=== PATIENT | female | born 1965 | race Caucasian/White ===

== ENCOUNTER → 2018-03-26 09:05 | Outpatient (CLI) | payer BC, SELFPAY ==
[2018-03-26 09:48] LABS: Erythrocyte Sedimentation Rate 12 mm/hr (0-30)
[2018-03-26 09:49] LABS: Absolute Lymphocyte Count 1.07 X10^3/ul (0.83-4.51); Absolute Neutrophil Count 6.3 X10^3/uL (2.0-7.7); Basophil# 0.04 X10^3/uL; Basophil% 0.5 % (0-1); Eosinophil# 0.47 X10^3/uL; Eosinophils% 5.5 % (0-5); Lymphocyte # 1.07 X10^3/ul (4.0); Lymphocyte % 12.5 % (19-41); Mean Corp Hgb Conc 32.4 g/gl (32-36); Mean Corpuscular Hgb 26.7 pg (27.0-32.0); Mean Corpuscular Volume 82.4 fL (81-99); Mean Platelet Vol. 8.9 fl (6.2-12.0); Monocyte# 0.72 X10^3/uL; Monocyte% 8.4 % (0-10); Neutrophil # 6.26 X10^3/uL (2.7-7.7); Platelet Count 352 K/mm3 (150-450); RBC Distribution Width CV 14.5 % (11.6-14.6); RBC Distribution Width SD 42.4 fl (35.1-43.9); Red Blood Count 4.49 M/mm3 (4.2-5.4); White Blood Count 8.6 K/mm3 (4.4-11.0)
[2018-03-26 09:50] LABS: POSITIVE COUNT NO; POSITIVE DIFFERENTIAL NO; POSITIVE MORPHOLOGY NO
[2018-03-26 10:18] LABS: T4 Free Direct 1.16 ng/dL (0.76-1.46); Thyroid Stim Hormone (TSH) 1.03 uIU/mL (0.358-3.74)
== END ==
PROVIDERS: Family Provider Internal Medicine; PCP Internal Medicine; Visit Provider Otolaryngology Otolaryngology/Facial Plastic Surgery
DX: J32.9 Chronic sinusitis, unspecified (principal); R63.5 Abnormal weight gain
CPT/HCPCS: 36415; 84439; 84443; 85025; 85652; 87070; 87205

== ENCOUNTER → 2018-08-16 15:52 | Outpatient (CLI) | payer BC, SELFPAY | PROVIDERS: Family Provider Internal Medicine; PCP Internal Medicine; Referring Provider Otolaryngology Otolaryngology/Facial Plastic Surgery; Visit Provider Otolaryngology Otolaryngology/Facial Plastic Surgery | DX: J32.9 Chronic sinusitis, unspecified (principal) | CPT/HCPCS: 87070; 87205 ==

== ENCOUNTER → 2019-02-01 15:18 | Outpatient (CLI) | payer BC, SELFPAY ==
[2019-02-01 11:21] VITALS: BMI 29.8
[2019-02-06 14:27] LABS: HPV APTIMA, High Risk Negative (Negative)
== END ==
PROVIDERS: Family Provider Internal Medicine; PCP Internal Medicine; Referring Provider Obstetrics & Gynecology; Visit Provider Obstetrics & Gynecology
DX: Z12.4 Encounter for screening for malignant neoplasm of cervix (principal)
CPT/HCPCS: 87624; 88175; G0145

== ENCOUNTER → 2019-03-10 07:58 | Outpatient (CLI) | payer BC, SELFPAY ==
[2019-02-01 11:21] VITALS: BMI 29.8
--- NOTE | 2019-03-10 08:02 | BI_ITS ---
MAMMOGRAPHY - BILATERAL SCREENING REASON FOR EXAM: Female, 53 years old. Routine annual screening examination. PERTINENT HISTORY: Non-contributory. TECHNIQUE: Digital bilateral breast arlin (3D mammographic acquisition) in the CC and MLO projections. 2-D mediolateral oblique (MLO) and craniocaudad (CC) views of both breasts were obtained. CAD: Full Field Digital Mammography with Computer Added Detection was performed. COMPARISON: Comparison is made with prior study dated October 19, 2012. FINDINGS: Breast Composition: The breasts are heterogeneously dense, which may obscure small masses. There are no dominant masses or suspicious calcifications. Stable 5.4 mm well-defined nodule in the deep upper lateral portion of the right breast. A central notch is seen. This is in keeping with a small lymph node. No other significant abnormalities are identified. There has been no significant change since the prior study. BI/SCREEN MAMM (CAD) W/ARLIN BILAT IMPRESSION: Stable bilateral screening mammogram. Yearly follow-up mammogram recommended. (A) ASSESSMENT CATEGORY: BIRADS Category 2: Benign. A letter regarding these results will be sent to the patient by the facility within 30 days. Approximately 10% of breast cancers are not detected by mammography. A normal mammogram should not delay biopsy of a clinically suspicious abnormality. [id number] Electronically Signed: Anurag Marcelo, at 9:21 EDT , Service support ,
[2019-03-10 09:06] LABS: Cholesterol 154 mg/dL (200); Glucose 86 mg/dL (74-106); High Density Lipoprotein 73 mg/dL; Triglycerides 72 mg/dL; Very Low Density Lipoprotein 14 mg/dL (5-40)
[2019-03-10 09:16] LABS: Vitamin D,25 Hydroxy 35.3 ng/mL (29.95-100.01)
== END ==
LOC: OPBI 08:00 → PAVLAB 08:24
PROVIDERS: Family Provider Internal Medicine; PCP Internal Medicine; Referring Provider Obstetrics & Gynecology; Visit Provider Obstetrics & Gynecology
DX: Z12.31 Encounter for screening mammogram for malignant neoplasm of breast (principal); Z01.419 Encounter for gynecological examination (general) (routine) without abnormal findings; E56.9 Vitamin deficiency, unspecified
CPT/HCPCS: 36415; 77063; 77067; 80061; 82306; 82947

== ENCOUNTER → 2019-08-28 15:33 | Outpatient (CLI) | payer BC, SELFPAY ==
[2019-02-01 11:21] VITALS: BMI 29.8
--- NOTE | 2019-08-28 15:35 | CT_ITS ---
STUDY: CT MAXILLOFACIAL SINUSES REASON FOR EXAM: Female, 53 years old. Sinusitis. RADIATION DOSAGE (If Supplied By Facility): CTDIvol = ( 33.06 ) mGy, DLP = ( 800.79 ) mGycm TECHNIQUE: The patient was scanned in a multi detector CT scanner. High resolution axial imaging was performed without the administration of intravenous contrast material. Sagittal and coronal images were reconstructed. Individualized dose optimization techniques were used for this CT. COMPARISON: None. FINDINGS: FRONTAL SINUSES: Normal aeration, without mucosal inflammatory disease. ETHMOIDAL SINUSES: Normal aeration, without mucosal inflammatory disease. MAXILLARY SINUSES: Normal aeration. Minimal mucosal thickening in the floors of both maxillary sinuses, left worse than right, but not reaching 5 mm thickness. SPHENOIDAL SINUSES: Normal aeration, without mucosal inflammatory disease. There is patency of the bilateral maxillary infundibuli with normal uncinate processes, ethmoid bullae, and hiatus semilunaris. Normal bilateral middle turbinates. Normal bilateral inferior turbinates. Normal midline nasal septum. There is patency of the bilateral nasal airways. The visualized osseous structures are normal. The visualized bilateral orbital contents are normal. CT/Sinus/Facial Bone IMPRESSION: No evidence for acute sinusitis. Minimal mucosal thickening in the floors of both maxillary sinuses. Electronically Signed: Davis Rodriguez MD at 19:15 EDT , Service support ,
== END ==
PROVIDERS: Family Provider Internal Medicine; PCP Internal Medicine; Referring Provider Otolaryngology Otolaryngology/Facial Plastic Surgery; Visit Provider Otolaryngology Otolaryngology/Facial Plastic Surgery
DX: J32.9 Chronic sinusitis, unspecified (principal)
CPT/HCPCS: 70486

== ENCOUNTER → 2019-10-21 08:43 | Outpatient (CLI) | payer BC, SELFPAY ==
[2019-02-01 11:21] VITALS: BMI 29.8
[2019-10-24 06:07] LABS: Clam <0.10 kU/L (Class 0); Codfish <0.10 kU/L (Class 0); Corn <0.10 kU/L (Class 0); Egg, White <0.10 kU/L (Class 0); Gluten <0.10 kU/L (Class 0); Milk (Cow) <0.10 kU/L (Class 0); Oat <0.10 kU/L (Class 0); Peanut <0.10 kU/L (Class 0); SCALLOP <0.10 kU/L (Class 0); SESAME SEED <0.10 kU/L (Class 0); Shrimp <0.10 kU/L (Class 0); Soybean <0.10 kU/L (Class 0); Walnut, (Food) <0.10 kU/L (Class 0); Wheat <0.10 kU/L (Class 0)
[2019-10-24 14:45] LABS: Wheat <0.10 kU/L (Class 0); Yeast <0.10 kU/L (Class 0)
== END ==
PROVIDERS: Family Provider Internal Medicine; PCP Internal Medicine; Referring Provider Otolaryngology Otolaryngology/Facial Plastic Surgery; Visit Provider Otolaryngology Otolaryngology/Facial Plastic Surgery
DX: T78.40XA Allergy, unspecified, initial encounter (principal)
CPT/HCPCS: 36415; 86003

== ENCOUNTER → 2020-02-07 09:07 | Outpatient (CLI) | payer BC, SELFPAY ==
[2019-02-01 11:21] VITALS: BMI 29.8
--- NOTE | 2020-02-07 09:27 | CT_ITS ---
STUDY: CT ABDOMEN AND PELVIS WITH CONTRAST REASON FOR EXAM: Female, 54 years old. RLQ PAIN X 1 WEEK RADIATION DOSAGE (If Supplied By Facility): CTDIvol = ( 16.61 ) mGy, DLP = ( 833.71 ) mGycm TECHNIQUE: Transaxial images were obtained from the dome of the diaphragm to the symphysis pubis with oral contrast. Oral and amp; IV Gastrografin and amp; 100mL Isovue-300 was administered. Sagittal and coronal images were reconstructed. Individualized dose optimization techniques were used for this CT. COMPARISON: None. FINDINGS: The visualized lung bases are unremarkable. The visualized portions of the heart are within normal limits. There is decreased attenuation of the liver consistent with steatosis. Normal gallbladder and extrahepatic biliary system. Normal spleen. Normal pancreas. Normal bilateral adrenal glands. Normal right kidney. Normal left kidney. There is a small hiatal hernia. Normal small intestine. Normal colon. The appendix is visualized and appears normal. Small lymph nodes are seen in the mesenteric fat in the right lower quadrant adjacent to the terminal ileum and appendix suggestive of mesenteric adenitis. Normal abdominal aorta. Normal inferior vena cava. Normal retroperitoneum. Normal urinary bladder. Normal abdominal wall. Normal osseous structures. CT/Abdomen/Pelvis WITH Contrast IMPRESSION: Findings suggestive of mesenteric adenitis. Electronically Signed: Anurag Marcelo, at 11:57 EDT , Service support ,
[2020-02-07 09:48] LABS: Absolute Lymphocyte Count 1.79 X10^3/uL (0.83-4.51); Absolute Neutrophil Count 3.3 X10^3/uL (2.0-7.7); Basophil# 0.06 X10^3/uL; Eosinophil# 0.21 X10^3/uL; Eosinophils% 3.5 % (0-5); Hematocrit 36.4 % (37-47); Hemoglobin 11.1 g/dL (12.0-15.0); Lymphocyte # 1.79 X10^3/ul (4.0); Lymphocyte % 29.9 % (19-41); Mean Corp Hgb Conc 30.5 g/dL (32-36); Mean Corpuscular Hgb 24.9 pg (27.0-32.0); Mean Corpuscular Volume 81.6 fL (81-99); Mean Platelet Vol. 8.7 fl (6.2-12.0); Monocyte# 0.58 X10^3/uL; Monocyte% 9.7 % (0-10); NRBC Flagged by Analyzer 0 % (0-5); Neutrophil # 3.33 X10^3/uL (2.7-7.7); Neutrophil % 55.7 % (47-70); Platelet Count 387 K/mm3 (150-450); RBC Distribution Width CV 15.1 % (11.6-14.6); RBC Distribution Width SD 44.3 fl (35.1-43.9); Red Blood Count 4.46 M/mm3 (4.2-5.4)
[2020-02-07 09:54] LABS: Albumin, Serum 3.6 g/dL (3.2-5.0); BUN 12 mg/dL (7-18); BUN/Creat Ratio 15.6 RATIO (10-20); Calcium,Total 9.1 mg/dL (8.5-10.1); Chloride 110 mmol/L (98-107); Creatinine, Serum 0.77 mg/dL (0.55-1.02); EST Glomerular Filtration Rate 84 mL/min (>60); Est Glom Filt Rate - Afr Amer 101 mL/min (>60); Glucose 90 mg/dL (74-106); Phosphorus 3.9 mg/dL (2.5-4.9); Potassium 4.1 mmol/L (3.5-5.1); Sodium Level 141 mmol/L (136-145)
== END ==
PROVIDERS: PCP Internal Medicine; Referring Provider Nurse Practitioner; Visit Provider Nurse Practitioner
DX: R10.31 Right lower quadrant pain (principal)
CPT/HCPCS: 36415; 74177; 80069; 85025; 87086; 87088; Q9967

== ENCOUNTER → 2020-02-20 08:30 | Outpatient (CLI) | payer BC, SELFPAY ==
[2019-02-01 11:21] VITALS: BMI 29.8
--- NOTE | 2020-02-20 08:32 | US_ITS ---
STUDY: ULTRASOUND OF THE FEMALE PELVIS - COMPLETE REASON FOR EXAM: Female, 54 years old. F/U CT DONE 02/07/20 -- RT MESENTERIC LILIAN TITIS -- PAIN WITH INTERCOURSE LMP: February 10, 2020. TECHNIQUE: Transabdominal and Transvaginal TECHNICAL QUALITY: Adequate. COMPARISON: Comparison is made with prior CT scan dated February 07, 2020. FINDINGS: The uterus is anteverted and is in a midline position. The uterus measures 10.8 cm x 6.4 cm x 6.1 cm. There is a Nabothian cyst of the cervix. The endometrium measures 19 mm in thickness, and is hyperechoic. There is no demonstrated endometrial mass. 2 fibroids are seen. The largest measures 1.9 cm x 1.6 cm x 1.5 cm. I.U.D. - The patient does not have an I.U.D. The right ovary is visualized. The right ovary measures 2.2 cm x 2.5 cm x 1.7 cm. There is no right ovarian cyst or ovarian mass. There is no visualized right adnexal mass or complex lesion. There is normal arterial and normal venous vascularity. The left ovary is visualized. The left ovary measures 1.9 cm x 2.7 cm x 1.5 cm. There is no left ovarian cyst or ovarian mass. There is no visualized left adnexal mass or complex lesion. There is normal arterial and normal venous vascularity. There is no fluid in the cul-de-sac. 2 benign-appearing lymph nodes are seen in the right lower quadrant. The larger measuring 2.5 cm x 2.5 cm x 0.9 cm. US/Transvaginal Non- IMPRESSION: 2 small uterine fibroids. There are 2 benign-appearing lymph nodes in the right lower quadrant the larger measuring 2.5 cm x 2.5 cm by 0.9 cm. Electronically Signed: Anurag Marcelo, at 12:40 EDT , Service support ,
--- NOTE | 2020-02-20 08:32 | US_ITS ---
STUDY: ULTRASOUND OF THE FEMALE PELVIS - COMPLETE REASON FOR EXAM: Female, 54 years old. F/U CT DONE 02/07/20 -- RT MESENTERIC LILIAN TITIS -- PAIN WITH INTERCOURSE LMP: February 10, 2020. TECHNIQUE: Transabdominal and Transvaginal TECHNICAL QUALITY: Adequate. COMPARISON: Comparison is made with prior CT scan dated February 07, 2020. FINDINGS: The uterus is anteverted and is in a midline position. The uterus measures 10.8 cm x 6.4 cm x 6.1 cm. There is a Nabothian cyst of the cervix. The endometrium measures 19 mm in thickness, and is hyperechoic. There is no demonstrated endometrial mass. 2 fibroids are seen. The largest measures 1.9 cm x 1.6 cm x 1.5 cm. I.U.D. - The patient does not have an I.U.D. The right ovary is visualized. The right ovary measures 2.2 cm x 2.5 cm x 1.7 cm. There is no right ovarian cyst or ovarian mass. There is no visualized right adnexal mass or complex lesion. There is normal arterial and normal venous vascularity. The left ovary is visualized. The left ovary measures 1.9 cm x 2.7 cm x 1.5 cm. There is no left ovarian cyst or ovarian mass. There is no visualized left adnexal mass or complex lesion. There is normal arterial and normal venous vascularity. There is no fluid in the cul-de-sac. 2 benign-appearing lymph nodes are seen in the right lower quadrant. The larger measuring 2.5 cm x 2.5 cm x 0.9 cm. US/Pelvic (Non ) IMPRESSION: 2 small uterine fibroids. There are 2 benign-appearing lymph nodes in the right lower quadrant the larger measuring 2.5 cm x 2.5 cm by 0.9 cm. Electronically Signed: Anurag Marcelo, at 12:40 EDT , Service support ,
== END ==
PROVIDERS: PCP Internal Medicine; Referring Provider Nurse Practitioner; Visit Provider Nurse Practitioner
DX: I88.0 Nonspecific mesenteric lymphadenitis (principal)
CPT/HCPCS: 76830; 76856

== ENCOUNTER → 2020-02-22 11:35 | Outpatient (CLI) | payer BC, SELFPAY ==
[2020-02-22 11:19] VITALS: BMI 29.8
[2020-02-22 12:50] LABS: Potassium 3.8 mmol/L (3.5-5.1); Thyroid Stim Hormone (TSH) 1.43 uIU/mL (0.358-3.74)
[2020-02-24 03:06] LABS: DHEA Sulfate 31.4 ug/dL (41.2-243.7)
[2020-02-24 03:56] LABS: Testosterone Free 1.5 pg/mL (0.0-4.2)
== END ==
PROVIDERS: PCP Internal Medicine; Referring Provider Nurse Practitioner Women's Health; Visit Provider Nurse Practitioner Women's Health
DX: L68.0 Hirsutism (principal); E87.5 Hyperkalemia; R10.2 Pelvic and perineal pain
CPT/HCPCS: 82627; 84132; 84402; 84439; 84443; 87070; 87077; 87186; 87205; 82626

== ENCOUNTER → 2021-08-06 13:49 | Outpatient (CLI) | payer BC, SELFPAY ==
--- NOTE | 2021-08-06 13:53 | BI_ITS ---
MAMMOGRAPHY - BILATERAL SCREENING 3-D TOMOSYNTHESIS REASON FOR EXAM: Female, 55 years old. screening mammogram PERTINENT HISTORY: No significant family history. TECHNIQUE: 2-D mammograms and 3-D Tomosynthesis of the breast (s) were performed. CAD was performed. COMPARISON: 03/10/2019 FINDINGS: The breast composition is composed of scattered fibroglandular density. Scattered benign calcifications are seen. No dense spiculated masses or suspicious microcalcifications are identified. No architectural distortion is identified. There is no skin thickening or retraction. There has been no significant change since the prior study. BI/SCRN MAMM (CAD)W/ARLIN BILAT IMPRESSION: No mammographic signs of malignancy. Routine yearly mammograms recommended. ASSESSMENT CATEGORY: BIRADS Category 1: Negative. A letter regarding these results will be sent to the patient by the facility within 30 days. FOLLOW UP RECOMMENDATION: Yearly follow up mammogram recommended. (A) Approximately 10% of breast cancers are not detected by mammography. A normal mammogram should not delay biopsy of a clinically suspicious abnormality. Electronically Signed: Yeim Peguero MD at 15:38 EDT Tel , Service support ,
== END ==
PROVIDERS: PCP Internal Medicine; Referring Provider Physician Assistant; Visit Provider Physician Assistant
DX: Z12.31 Encounter for screening mammogram for malignant neoplasm of breast (principal)
CPT/HCPCS: 77063; 77067

== ENCOUNTER → 2021-08-07 09:15 | Outpatient (CLI) | payer BC, SELFPAY ==
[2021-08-07 10:11] LABS: Absolute Lymphocyte Count 1.99 X10^3/uL (0.83-4.51); Absolute Neutrophil Count 3.7 X10^3/uL (2.0-7.7); Basophil# 0.04 X10^3/uL; Basophil% 0.6 % (0-1); Eosinophil# 0.22 X10^3/uL; Eosinophils% 3.3 % (0-5); Hematocrit 39.7 % (37-47); Hemoglobin 12.7 g/dL (12.0-15.0); Lymphocyte # 1.99 X10^3/ul (0.83-4.51); Lymphocyte % 29.6 % (19-41); Mean Corpuscular Hgb 29.2 pg (27.0-32.0); Mean Corpuscular Volume 91.3 fL (81-99); Mean Platelet Vol. 9.1 fl (6.2-12.0); Monocyte# 0.72 X10^3/uL; Monocyte% 10.7 % (0-10); NRBC Flagged by Analyzer 0 % (0-5); Neutrophil # 3.73 X10^3/uL (2.7-7.7); Neutrophil % 55.5 % (47-70); Platelet Count 328 K/mm3 (150-450); RBC Distribution Width CV 13.5 % (11.6-14.6); RBC Distribution Width SD 45.2 fl (35.1-43.9); Red Blood Count 4.35 M/mm3 (4.2-5.4); White Blood Count 6.7 K/mm3 (4.4-11.0)
[2021-08-07 10:47] LABS: PTHIN 56.8 pg/mL (18.4-80.1)
[2021-08-07 10:55] LABS: AST(SGOT) 13 U/L (15-37); Alanine Aminotransfer ALT/SGPT 21 U/L (13-56); Albumin, Serum 3.5 g/dL (3.2-5.0); Alkaline Phosphatase 85 U/L (45-117); Anion Gap 4 (5-15); BUN 11 mg/dL (7-18); BUN/Creat Ratio 16.5 RATIO (10-20); Calcium,Total 8.9 mg/dL (8.5-10.1); Chloride 106 mmol/L (98-107); Creatinine, Serum 0.67 mg/dL (0.55-1.02); EST Glomerular Filtration Rate 98 mL/min (>60); Est Glom Filt Rate - Afr Amer 119 mL/min (>60); Ferritin 26 ng/mL (8-252); Globulin 3.5 g/dL (2.2-4.2); Glucose 88 mg/dL (74-106); Potassium 4.5 mmol/L (3.5-5.1); Sodium Level 140 mmol/L (136-145)
== END ==
PROVIDERS: PCP Internal Medicine; Referring Provider Dermatology Pediatric Dermatology; Visit Provider Dermatology Pediatric Dermatology
DX: L65.0 Telogen effluvium (principal); D23.62 Other benign neoplasm of skin of left upper limb, including shoulder
CPT/HCPCS: 36415; 80053; 82330; 82728; 83970; 85025

== ENCOUNTER 2021-10-21 17:24 | Outpatient (CLI) | payer BC, SELFPAY ==
[2021-10-21] MEDS: 0.9% Saline Lock 10 ML Syringe IV (17:51)
[2021-10-21 17:55] VITALS: BP 124/84; PULSE 119; RESP 18; TEMP 36.8; O2SAT 100; BMI 27.4
[2021-10-21 18:56] VITALS: BP 117/76; PULSE 81; RESP 16; TEMP 37; O2SAT 98
[2021-10-21 19:45] VITALS: BP 131/80; PULSE 81; RESP 16; TEMP 36.6; O2SAT 100
== END 2021-10-21 19:56 | disposition home or self-care (01) ==
LOC: MS3OUT 17:25 → MS3 17:25
PROVIDERS: PCP Internal Medicine; Referring Provider Nurse Practitioner Adult Health; Visit Provider Nurse Practitioner Adult Health
DX: Z23 Encounter for immunization (principal); U07.1 COVID-19; J45.909 Unspecified asthma, uncomplicated
CPT/HCPCS: J7050; M0245; Q0245; A4216

== ENCOUNTER → 2022-05-25 | Outpatient (CLI) | payer BC, SELFPAY ==
[2022-05-25 11:21] LABS: Hematocrit 44.2 % (37-47); Hemoglobin 14.6 g/dL (12.0-15.0); Mean Corpuscular Hgb 29.6 pg (27.0-32.0); Mean Corpuscular Volume 89.7 fL (81-99); Mean Platelet Vol. 9.1 fl (6.2-12.0); Platelet Count 351 K/mm3 (150-450); RBC Distribution Width SD 42.5 fl (35.1-43.9); Red Blood Count 4.93 M/mm3 (4.2-5.4); White Blood Count 7.8 K/mm3 (4.4-11.0)
[2022-05-25 11:28] LABS: Erythrocyte Sedimentation Rate 15 mm/hr (0-30)
[2022-05-25 11:33] LABS: Vitamin B12 794 pg/mL (211-911)
[2022-05-25 11:39] LABS: AST(SGOT) 12 U/L (15-37); Alanine Aminotransfer ALT/SGPT 23 U/L (13-56); Albumin, Serum 3.9 g/dL (3.2-5.0); Alkaline Phosphatase 95 U/L (45-117); Anion Gap 3 (5-15); BUN 12 mg/dL (7-18); BUN/Creat Ratio 14.8 RATIO (10-20); CPK Total, Creatine Kinase 38 U/L (26-192); CRP 3.51 mg/L (0.0-3.0); Calcium,Total 9.6 mg/dL (8.5-10.1); Chloride 105 mmol/L (98-107); Creatinine, Serum 0.81 mg/dL (0.55-1.02); EST Glomerular Filtration Rate 78 mL/min (>60); Est Glom Filt Rate - Afr Amer 94 mL/min (>60); Globulin 3.8 g/dL (2.2-4.2); Glucose 97 mg/dL (74-106); Potassium 4.1 mmol/L (3.5-5.1); Protein, Total 7.7 g/dL (6.4-8.2); Sodium Level 138 mmol/L (136-145); Thyroid Stim Hormone (TSH) 1.83 uIU/mL (0.358-3.74); Troponin-I HS 4 pg/mL (3.0-54.0)
== END | disposition home or self-care (01) ==
LOC: LABSPEC 11:08
PROVIDERS: PCP Internal Medicine; Visit Provider Internal Medicine
DX: R61 Generalized hyperhidrosis (principal); R53.83 Other fatigue
CPT/HCPCS: 80053; 82550; 82607; 84443; 84484; 85027; 85652; 86140

== ENCOUNTER → 2022-06-02 | Outpatient (CLI) | payer SELFPAY | END | disposition home or self-care (01) | PROVIDERS: PCP Internal Medicine; Referring Provider Internal Medicine; Visit Provider Internal Medicine | DX: R42 Dizziness and giddiness (principal); R61 Generalized hyperhidrosis | CPT/HCPCS: 93225; 93226 ==

== ENCOUNTER 2022-07-08 14:58 | Outpatient (RCR) | payer SELFPAY | END 2022-07-08 15:00 | disposition home or self-care (01) | LOC: PT 14:58 | PROVIDERS: PCP Internal Medicine; Visit Provider Internal Medicine | DX: Z00.00 Encounter for general adult medical examination without abnormal findings (principal) ==

== ENCOUNTER 2025-01-07 04:52 | Emergency (ER) | payer OTHER, SELFPAY ==
[2025-01-07 04:56] VITALS: BP 107/80; PULSE 136; RESP 18; TEMP 37; O2SAT 93; BMI 30.1
--- NOTE | 2025-01-07 05:26 | EKG12_ITS ---
Test Reason : DYSRHYTHMIA Blood Pressure : */* mmHG Vent. Rate : 125 BPM Atrial Rate : 125 BPM P-R Int : 130 ms QRS Dur : 70 ms QT Int : 298 ms P-R-T Axes : 5 11 -2 degrees QTcB Int : 430 ms Sinus tachycardia Otherwise normal ECG Confirmed by Antelmo Brown ([id number]), sports editor VINAYAK HARRISON ([id number]) on 01/08/2025 11:00:52 AM Referred By: Confirmed By: Antelmo Brown
--- NOTE | 2025-01-07 05:44 | EX.ED.DYSGE1 ---
HPI History of Present Illness Chief Complaint: Nausea/Vomiting/Diarrhea Informant: patient and spouse/S.O. Narrative Narrative: Presents ED states not feeling well started 6 days ago. She reported dysuria this past Wednesday in the morning had fever saw her primary care office reports urine had blood viral swab COVID flu was negative she was put on nitrofurantoin. She went home that day on Wednesday had 2 emesis.'s had loose soft stools up till . noted some chest tightness mild cough. Been having fevers on and off throughout. Over the weekend with more symptoms at night not feeling well. At 1 AM today vomited. No hematemesis. No cardiac history. Denies hypertension, diabetes, hyperlipidemia. Denies tobacco. Denies recent travel or surgeries. No history of PE or DVT. [facility] Medical History (Updated 01/07/25 @ 07:[address] Raoul Tao DO) Mesenteric adenitis Hemorrhoids Asthma PCOS (polycystic ovarian syndrome) Home Medications ?Medication ?Instructions ?Recorded ?Last Taken ?Type dexamethasone 4 mg tablet 4 mg PO DAILY 10/21/21 Unknown History ivermectin 6 mg tablet mg PO DAILY 10/21/21 Unknown History cefdinir 300 mg capsule 300 mg PO Q12H #14 caps 01/07/25 Unknown Rx ondansetron 4 mg disintegrating 4 mg PO Q8H PRN PRN Nausea #10 tabs 01/07/25 Unknown Rx tablet Allergy/AdvReac Type Severity Reaction Status Date / Time penicillin G Allergy Intermediate rash Verified 01/07/25 05:02 Social History Smoking Status: Never smoker alcohol intake: never substance use type: does not use caffeine: Yes what type of physical activity do you participate in: walking frequency: 3-4 times per week seatbelt use: always do you feel safe at home: Yes additional social history: Spouse Juan David GREWAL URI ED Constitutional Constitutional ED: Reports fever(s); Denies chills or sweats ENT ENT ED: Denies sore throat Cardiovascular Cardiovascular: Reports chest pain; Denies leg edema, palpitations or racing heartbeat Respiratory/Chest Respiratory/Chest: Reports cough; Denies dyspnea or dyspnea on exertion Gastrointestinal Gastrointestinal: Reports nausea and vomiting; Denies abdominal pain or diarrhea Genitourinary Genitourinary ED: Denies dysuria, hematuria or urinary frequency Musculoskeletal Musculoskeletal: Denies back pain, extremity pain or neck pain Integumentary Denies rash or wounds Neurologic Neurologic: Denies headache(s), paresthesias or weakness EXAM Physical Exam Const Vital Signs: 01/07/25 04:56 01/07/25 06:52 01/07/25 07:41 Temperature 98.6 F Temperature Source Oral Pulse Rate 136 H 108 H 103 H Respiratory Rate 18 21 H 14 Blood Pressure 107/80 127/68 H Blood Pressure Mean 89 87 Pulse Ox 93 95 95 Oxygen Delivery Method Room Air Room Air Room Air Positive well nourished and well developed Constitutional Narrative: Nontoxic however slightly fatigued. General Appearance ED: well developed HEENT HEENT Narrative: Mild dry mucosal membranes. normocephalic and atraumatic Eyes General Eye ED: Yes normal appearance of both eyes Neck full ROM Chest Wall Chest: Negative for tenderness Resp normal respiratory effort and normal air movement Effort and Inspection: symmetric chest movement; Negative for respiratory distress Cardio regular rhythm and no murmurs Rate: tachycardic Peripheral Pulses: pulses 2+ throughout GI normal to inspection, nondistended, normoactive bowel sounds and non-tender GI Narrative: Negative Servin's or McBurney's tenderness. Palpation: Negative for guarding or rebound tenderness present Extremity normal to inspection General Extremety ED: Negative for edema or tenderness General Extremity: Negative for edema Neuro oriented x3 and no sensory deficits noted Sensorium / Orientation: awake and alert Skin no rashes or lesions noted and no wounds MDM MDM MDM Narrative Medical decision making narrative: Interventions / MDM: Differential diagnosis: UTI, nausea vomiting, chest pain Diagnosis considered but do not suspect: N/A My EKG interpretation: Sinus rate of 125, no ST changes isolated T wave version lead III nonspecific. QTc 430. Imaging independently reviewed and interpreted by myself: 1 view chest x-ray: No acute process External documents reviewed: N/A Test considered but not ordered:N/A ED course: Tachycardic slight dry mucosal membranes with vomiting. Also had chest tightness coughing slight dyspnea. Cardiac workup with basic labs. D-dimer for low risk Wells criteria for tachycardia. Chest x-ray for further evaluation. Urine will be checked. 0705: Heart rate after 1 L fluids 108 sinus rhythm on the monitor. She clinically feeling better. White count 10.6, creatinine 0.72 BUN of 8. Sodium 131. Initial troponin negative. Urine did note infection with leukocytes and WBCs. 2+ bacteria. Urine culture sent. She was tachycardic respiratory rate 21 recheck 2 out of 4 SIRS criteria with her urine. I ordered for blood cultures lactic acid IV Rocephin ordered. D-dimer elevated at 1.17. Ordered for CT of the chest for further evaluation. Additional 1 L fluids ordered. 0730: Awaiting results. Lactic acid returned normal. If CT chest negative, will plan p.o. challenge. Patient signed out to oncoming physician. Re-evaluation: stable Disposition discussed with patient/family/significant other: Patient and spouse Case discussed with consulting clinician: N/A This note was generated with medineering dictation software. It may contain incorrect words, spelling, and punctuation that were not noted in checking the note before signing. Lab Data Attestation: I reviewed the patient's lab results. Labs: Laboratory Results - last 24 hr 01/07/25 01/07/25 01/07/25 04:45 06:04 06:15 WBC 10.6 RBC 4.80 Hgb 14.5 Hct 43.1 MCV 89.8 MCH 30.2 MCHC 33.6 RDW Std Deviation 40.5 RDW Coeff of Elaina 12.2 Plt Count TNP MPV 11.4 Immature Gran % (Auto) 0.400 Neut % (Auto) 84.6 H Lymph % (Auto) 2.9 L [place] % (Auto) 6.8 Eos % (Auto) 4.9 Baso % (Auto) 0.4 Absolute Neuts (auto) 8.9 H Absolute Lymphs (auto) 0.31 L Nucleated RBC % 0 Platelet Estimate SLT DEC D-Dimer Quant (PE/DVT) 1.17 H* Sodium 131 L Potassium 4.7 Chloride 99 Carbon Dioxide 16.1 L Anion Gap 16 H BUN 8 Creatinine 0.72 Estim Creat Clear Calc 84.81 Est GFR (MDRD) Non-Af 97 BUN/Creatinine Ratio 10.7 Glucose 110 H Lactic Acid Calcium 9.3 Total Bilirubin 0.50 AST 48 H ALT 26 Alkaline Phosphatase 91 Troponin T High Sens < 6 Total Protein 7.0 Albumin 3.5 Globulin 3.4 Albumin/Globulin Ratio 1.0 Urine Color Straw Urine Clarity Clear Urine pH 6.0 Ur Specific [place] 1.010 Urine Protein 15 H Urine Glucose (UA) Normal Urine Ketones 50 H Urine Occult Blood Negative Urine Nitrite Negative Urine Bilirubin Negative Urine Urobilinogen Normal Ur Leukocyte Esterase 500 H Urine RBC 0-5 SEEN Urine WBC 50-100 SEEN Ur Squamous Epith Cells 5-10 SEEN Urine Bacteria 2+ Urine Mucus 0 SEEN 01/07/25 07:15 WBC RBC Hgb Hct MCV MCH MCHC RDW Std Deviation RDW Coeff of Elaina Plt Count MPV Immature Gran % (Auto) Neut % (Auto) Lymph % (Auto) [place] % (Auto) Eos % (Auto) Baso % (Auto) Absolute Neuts (auto) Absolute Lymphs (auto) Nucleated RBC % Platelet Estimate D-Dimer Quant (PE/DVT) Sodium Potassium Chloride Carbon Dioxide Anion Gap BUN Creatinine Estim Creat Clear Calc Est GFR (MDRD) Non-Af BUN/Creatinine Ratio Glucose Lactic Acid < 1.0 Calcium Total Bilirubin AST ALT Alkaline Phosphatase Troponin T High Sens Total Protein Albumin Globulin Albumin/Globulin Ratio Urine Color Urine Clarity Urine pH Ur Specific [place] Urine Protein Urine Glucose (UA) Urine Ketones Urine Occult Blood Urine Nitrite Urine Bilirubin Urine Urobilinogen Ur Leukocyte Esterase Urine RBC Urine WBC Ur Squamous Epith Cells Urine Bacteria Urine Mucus Radiography Diagnostic Testing: Clinical Impression(s) from Imaging Studies Chest X-Ray 01/07/25 06:07 IMPRESSION: No evidence of acute disease. Reading Location: [facility] Chest CTA 01/07/25 07:00 IMPRESSION: Motion artifact at the bases limits the evaluation. No evidence of filling defect to suggest pulmonary embolism. Mild dependent bilateral atelectasis. Bilateral septal thickening may be inflammatory or possible mild interstitial edema. No focal consolidation. One or more dose reduction techniques were used (e.g., Automated exposure control, adjustment of the mA and/or kV according to patient size, use of iterative reconstruction technique). Reading Location: [facility] Discharge Plan Triage Chief Complaint: Nausea/Vomiting/Diarrhea ED Provider: Kun Odonnell Dx/Rx/DC Orders Clinical Impression: UTI (urinary tract infection), Vomiting, Chest pain Instructions: Urinary Tract Infections in Women, ED Chest Pain, Uncertain Cause, ED Vomiting (Adult) Prescriptions: New ondansetron 4 mg tablet,disintegrating 4 mg PO Q8H PRN PRN (Reason: Nausea) Qty: 10 0RF cefdinir 300 mg capsule 300 mg PO Q12H Qty: 14 0RF No Action dexamethasone 4 mg Tablet 4 mg PO DAILY ivermectin 6 mg Tablet PO DAILY Primary Care Provider: Sanna Cleveland Referrals: Sanna Cleveland DO [Primary Care Provider] - Print Language: Georgian Disposition Disposition: Home, Self Care Discharge Date/Time: 01/07/25 09:13
[2025-01-07 05:50] LABS: Mucous, Urine 0 SEEN /hpf (<or=2+)
[2025-01-07 05:51] LABS: Color, Urine Straw (Yellow); Glucose, Dipstick Normal (Normal); Ketone-Dipstick 50 mg/dl (Negative); Leukocyte Esterase-Dipstick 500 /ul (Negative); Nitrite-Dipstick Negative (Negative); Occult Blood-Urine Negative /ul (Negative); Protein-Dipstick 15 mg/dl (Negative); Urine Bilirubin Dipstick Negative (Negative); Urine Clarity Clear (Clear); Urine Urobilinogen Normal (Normal)
--- NOTE | 2025-01-07 06:07 | RAD_ITS ---
PROCEDURE: CHEST 1 VIEW (PORTABLE) REASON FOR EXAM: Cough TECHNIQUE: Frontal view of the chest. COMPARISON: 10/19/2023 FINDINGS: The patient is slightly rotated to the right. The lungs are clear. The cardiac and mediastinal contours appear within limits. Visualized osseous structures appear within limits. RAD/Chest 1 View (Portable) IMPRESSION: No evidence of acute disease. Reading Location: [id number]
[2025-01-07 06:22] LABS: Absolute Lymphocyte Count 0.31 X10^3/uL (0.83-4.51); Absolute Neutrophil Count 8.9 X10^3/uL (2.0-7.7); Basophil# 0.04 X10^3/uL; Basophil% 0.4 % (0-1); Eosinophil# 0.52 X10^3/uL; Eosinophils% 4.9 % (0-5); Hematocrit 43.1 % (37-47); Hemoglobin 14.5 g/dL (12.0-15.0); Lymphocyte # 0.31 X10^3/ul (0.83-4.51); Lymphocyte % 2.9 % (19-41); Mean Corp Hgb Conc 33.6 g/dL (32-36); Mean Corpuscular Hgb 30.2 pg (27.0-32.0); Mean Corpuscular Volume 89.8 fL (81-99); Mean Platelet Vol. 11.4 fl (6.2-12.0); Monocyte# 0.72 X10^3/uL; Monocyte% 6.8 % (0-10); NRBC Flagged by Analyzer 0 % (0-5); Neutrophil # 8.94 X10^3/uL (2.7-7.7); Neutrophil % 84.6 % (47-70); POSITIVE COUNT YES; POSITIVE DIFFERENTIAL YES; RBC Distribution Width CV 12.2 % (11.6-14.6); RBC Distribution Width SD 40.5 fl (35.1-43.9); White Blood Count 10.6 K/mm3 (4.4-11.0)
[2025-01-07] MEDS: 0.9% Normal Saline (1000mL) 1,000 ML 1000 ML IV (06:26)
[2025-01-07] MEDS: Ondansetron 4 MG/2 ML Vial IV (06:27)
[2025-01-07 06:41] LABS: Differential Indicated SCAN CRITERIA MET
[2025-01-07 06:43] LABS: AST(SGOT) 48 U/L (<=31); Alanine Aminotransfer ALT/SGPT 26 U/L (<=34); Albumin, Serum 3.5 g/dL (3.5-5.0); Alkaline Phosphatase 91 U/L (35-104); Anion Gap 16 (5-15); BUN 8 mg/dL (4-19); BUN/Creat Ratio 10.7 RATIO (10-20); Calcium,Total 9.3 mg/dL (7.6-11.0); Carbon Dioxide 16.1 mmol/L (21.0-32.0); Chloride 99 mmol/L (98-108); Creatinine, Serum 0.72 mg/dL (0.70-1.20); EST Glomerular Filtration Rate 97 (>60); Estimated Creatinine Clearance 84.81 ml/min (50-250); Globulin 3.4 g/dL (2.2-4.2); Glucose 110 mg/dL (70-99); Potassium 4.7 mmol/L (3.3-5.1); Sodium Level 131 mmol/L (133-145); Troponin T High Sensitivity < 6 ng/L (<=14)
[2025-01-07 06:47] LABS: D-Dimer Quantitative (DVT/PE) 1.17 FEU/ug/m (0.27-0.49)
[2025-01-07 06:52] VITALS: PULSE 108; RESP 21; O2SAT 95
[2025-01-07 06:53] LABS: Bacteria 2+ /hpf (None Seen); Red Blood Cells-Urine 0-5 SEEN /hpf (0-5); Squamous Epithelial Cells - UA 5-10 SEEN /hpf (5-10); White Blood Cells 50-100 SEEN /hpf (0-5)
--- NOTE | 2025-01-07 07:00 | CT_ITS ---
PROCEDURE: CTA CHEST W/WO CONTRAST REASON FOR EXAM: Chest pain, elevated D-dimer TECHNIQUE: CTA imaging of the chest with intravenous contrast. 3D reconstructions. Coronal and sagittal and MIP reformatted images CONTRAST: 100 cc Isovue 370 COMPARISON: None. FINDINGS: Motion artifact at the bases limits the evaluation. No evidence of filling defect to suggest pulmonary embolism. Thoracic aorta appears within limits. No pericardial or pleural effusion. Limited images of the upper abdomen appear unremarkable. The central airways appear patent. Mild dependent bilateral atelectasis. Bilateral septal thickening may be inflammatory or possible mild interstitial edema. No focal consolidation. Shotty appearing mediastinal nodes. Visualized osseous structures appear within limits. CT/CTA Chest W/WO Contrast IMPRESSION: Motion artifact at the bases limits the evaluation. No evidence of filling defect to suggest pulmonary embolism. Mild dependent bilateral atelectasis. Bilateral septal thickening may be inflam matory or possible mild interstitial edema. No focal consolidation. One or more dose reduction techniques were used (e.g., Automated exposure contr ol, adjustment of the mA and/or kV according to patient size, use of iterative reconstruction technique). Reading Location: [id number]
[2025-01-07] MEDS: Ceftriaxone 1 GM/50 ML BAG IV (07:35)
[2025-01-07] MEDS: 0.9% Normal Saline (1000mL) 1,000 ML 999 ML IV (07:36)
[2025-01-07 07:41] VITALS: BP 127/68; PULSE 103; RESP 14; O2SAT 95
[2025-01-07 07:42] LABS: Platelet Estimate SLT DEC (ADEQ)
[2025-01-07 07:53] LABS: Lactic Acid < 1.0 mmol/L (0.0-2.0)
[2025-01-07 08:48] LABS: Troponin T High Sens 2 HR 9 ng/L (<=14)
[2025-01-07 09:11] VITALS: BP 120/87; PULSE 90; RESP 16; O2SAT 97
== END 2025-01-07 09:13 | disposition home or self-care (01) ==
PROVIDERS: Emergency Medicine; Emergency Provider Emergency Medicine; PCP Internal Medicine; Visit Provider Emergency Medicine
DX: N39.0 Urinary tract infection, site not specified (principal); R07.9 Chest pain, unspecified; Z11.52 Encounter for screening for COVID-19; R11.2 Nausea with vomiting, unspecified; J45.909 Unspecified asthma, uncomplicated; R19.7 Diarrhea, unspecified; Z79.899 Other long term (current) drug therapy
CPT/HCPCS: 36415; 71045; 71275; 80053; 81001; 83605; 84484; 85025; 85379; 87040; 87086; 87088; 87631; 93005; 96361; 96365; 96375; 99284; Q9967; A4216; J2405